=== PATIENT | female | born 1990 | race African-American/Black ===

== ENCOUNTER 2017-01-06 13:46 | Emergency (ER) | payer SELFPAY ==
[~2017-01-06] VITALS: Ht 157.5 cm; Wt 56.0 kg
[2017-01-06 13:48] VITALS: BP 141/56; PULSE 75; RESP 16; TEMP 98.2; O2SAT 98
== END 2017-01-06 16:48 | disposition left against medical advice (07) ==
LOC: NED 13:46
DX: J00 Acute nasopharyngitis [common cold] (principal); Z53.21 Procedure and treatment not carried out due to patient leaving prior to being seen by health care provider
CPT/HCPCS: 99281